=== PATIENT | male | born 1985 | race Caucasian/White ===

== ENCOUNTER 2019-07-26 04:14 | Emergency (ER) | payer SELFPAY ==
[~2019-07-26] VITALS: Ht 175.3 cm; Wt 77.3 kg
[2019-07-26] MEDS ORDERED: PERTUSS(ACELL),DIPH,TET VAC/PF 0.5 ML VIAL IM ONE (04:45)
[2019-07-26 07:00] VITALS: BP 133/76
== END 2019-07-26 07:25 | disposition home or self-care (01) ==
LOC: EMS 04:14
DX: S06.0X9A Concussion with loss of consciousness of unspecified duration, initial encounter (principal); S01.01XA Laceration without foreign body of scalp, initial encounter; Y04.2XXA Assault by strike against or bumped into by another person, initial encounter; Y93.89 Activity, other specified; Y92.89 Other specified places as the place of occurrence of the external cause; Y99.8 Other external cause status
CPT/HCPCS: 12002; 36415; 70450; 90471; 90715; 99284; G0480

== ENCOUNTER 2019-09-04 12:28 | Emergency (ER) | payer SELFPAY ==
[~2019-09-04] VITALS: Ht 175.3 cm; Wt 72.7 kg
[2019-09-04 12:51] VITALS: BP 151/76
== END 2019-09-04 13:14 | disposition home or self-care (01) ==
LOC: EMS 12:29
DX: S01.01XD Laceration without foreign body of scalp, subsequent encounter (principal); F12.90 Cannabis use, unspecified, uncomplicated; Z48.02 Encounter for removal of sutures; X58.XXXD Exposure to other specified factors, subsequent encounter

== ENCOUNTER 2022-10-07 03:01 | Emergency (ER) | payer SELFPAY ==
[~2022-10-07] VITALS: Ht 175.3 cm; Wt 86.4 kg
[2022-10-07] MEDS ORDERED: SODIUM CHLORIDE 0.9% 1,000 ML IV ONE (03:45)
[2022-10-07] MEDS ORDERED: ONDANSETRON HCL 4 MG/2 ML VIAL IVP ONE (03:45)
[2022-10-07] MEDS ORDERED: KETOROLAC TROMETHAMINE 30 MG/ML VIAL IVP ONE (03:45)
[2022-10-07] MEDS ORDERED: MAG HYDROX/AL HYDROX/SIMETH ES 30 ML SUSPENSION UDCUP PO ONE ×2 (03:45→04:15)
[2022-10-07] MEDS ORDERED: MAG30ORA11 PO (04:04)
[2022-10-07] MEDS ORDERED: ACET-66 PO (04:04)
[2022-10-07 04:15] VITALS: BP 116/68
== END 2022-10-07 04:45 | disposition home or self-care (01) ==
LOC: EMS 03:01
DX: R07.2 Precordial pain (principal); F12.90 Cannabis use, unspecified, uncomplicated; F10.90 Alcohol use, unspecified, uncomplicated
CPT/HCPCS: 99282; Z7502; Z7610